=== PATIENT | male | born 2000 | race Caucasian/White ===

== ENCOUNTER 2020-01-03 10:45 | Emergency (ER) | payer BC, SELFPAY ==
[2020-01-03 11:03] VITALS: BP 111/72; PULSE 117; RESP 16; TEMP 38.2; O2SAT 98
--- NOTE | 2020-01-03 11:21 | ED.URI ---
HPI - URI/Sore Throat General Chief Complaint: Upper Respiratory Infection Stated Complaint: Fever Time Seen by Provider: 01/03/20 11:11 Source: patient and RN notes reviewed Mode of arrival: ambulatory Limitations: no limitations History of Present Illness HPI Narrative: Patient presents today complaining of fever up to 101.6, lightheadedness, productive cough, sore throat. States cough is been present for a while . Denies shortness of breath, but states it is more days to breathe than normal. Denies history of asthma or COPD. He is a non-smoker. He did receive a flu vaccine. He has been taking TheraFlu and DayQuil with some relief. MD elicited complaint: fever and cough Related Data Home Medications Medication Instructions Recorded Confirmed No Home Medications 01/03/20 01/03/20 Allergies Allergy/AdvReac Type Severity Reaction Status Date / Time No Known Allergies Allergy Verified 01/03/20 11:03 Review of Systems Review of Systems: Narrative: CONSTITUTIONAL: Denies body aches, chills, or sweats.+ Fever EYES: Denies visual changes, redness, or discharge. ENT: Denies rhinorrhea, congestion,, or otalgia.+ Sore throat CARDIOVASCULAR: Denies chest pain, palpitations, or edema. RESPIRATORY: + Cough GASTROINTESTINAL: Denies abdominal pain, nausea, vomiting, or diarrhea. GENITOURINARY: Denies dysuria or hematuria. SKIN: Denies rash, itching, or wounds. MUSCULOSKELETAL: Denies back pain, joint pain, or myalgia. NEUROLOGIC: Denies headache, numbness, tingling, or weakness.+ Lightheadedness PSYCH: Denies depression or anxiety. PMFSH Comments At time of signature, I have reviewed and agree with nursing past medical, surgical, social and family history unless otherwise noted. Please see nursing chart for further information. There is no relevant family history pertinent to the presenting complaint Exam Narrative: Exam Narrative: GENERAL: Mildly ill-appearing, well-nourished, and in no acute distress. HEAD: Normocephalic, atraumatic. EYES: EOMI. No redness or drainage. Conjunctivae normal. ENT: Mucous membranes pink and moist. Nares congested. No rhinorrhea. TMs normal bilaterally. Throat moderately erythematous and edematous. Lips are dry and cracked. Tonsils 3+ with exudate. Uvula midline. NECK: Normal AROM. Supple. No lymphadenopathy. CHEST: No respiratory distress. Clear to auscultation. HEART: Regular rate and rhythm. No murmur appreciated. Normal peripheral pulses. EXTREMITIES: Normal range of motion. No edema. SKIN: Warm, dry, no rash. NEURO: No focal deficits. Alert and oriented x3. Gait steady. PSYCH: Normal affect. No signs of depression or anxiety. During my HPI, patient laid down on the stretcher and states he is lightheaded. Gave him some water and will recheck in 10 minutes. Course Course Emergency Course: 1135-recheck of patient after he was feeling lightheaded. He is sitting and drinking water and states he is feeling better. His lips appear dry and he could be a little dehydrated. Discussed rehydration at home. Vital Signs Vital signs: Vital Signs Temperature 100.7 F H 01/03/20 11:03 Pulse Rate 117 H 01/03/20 11:03 Respiratory Rate 16 01/03/20 11:03 Blood Pressure 111/72 01/03/20 11:03 Pulse Oximetry 98 01/03/20 11:03 Temperature 100.7 F H 01/03/20 11:03 Pulse Rate 117 H 01/03/20 11:03 Respiratory Rate 16 01/03/20 11:03 Blood Pressure 111/72 01/03/20 11:03 Pulse Oximetry 98 01/03/20 11:03 Reviewed MDM - URI/Sore Throat Differential Diagnosis Differential diagnosis: Likely upper respiratory infection, viral infection, influenza and other (Strep throat) Lab Data Attestation: I reviewed the patient's lab results. Labs: Influenza A Screen Negative Reference Range: Negative Influenza B Screen Negative Reference Range: Negative Strep Screen Presumptive Negative *(Reference Range: Negative)*
== END 2020-01-03 11:50 | disposition home or self-care (01) ==
PROVIDERS: Emergency Provider Nurse Practitioner
DX: J06.9 Acute upper respiratory infection, unspecified (principal); J02.9 Acute pharyngitis, unspecified
CPT/HCPCS: 87081; 87804; 87880; 99203; G0463